=== PATIENT | female | born 1980 | race Caucasian/White ===

== ENCOUNTER → 2020-05-10 12:57 | Outpatient (CLI) | payer BC, SELFPAY ==
--- NOTE | 2020-05-10 13:04 | ECHOD_ITS ---
Reason For Study: MURMUR Procedure This was a 2D Doppler, Color Flow transthoracic echocardiogram. Exam performed in department. Left Ventricle Normal LV size. Left ventricular systolic function is normal. The estimated ejection fraction is 60 %. Normal diastology for age. No regional wall motion abnormalities noted. Right Ventricle Normal RV size. Normal systolic function. Atria Normal left atrium. Normal right atrium. Mitral Valve Normal mitral valve. Tricuspid Valve Normal tricuspid valve. Mild tricuspid valve insufficiency. Pulmonary artery systolic pressure is 24 mmHg. Aortic Valve Normal aortic valve. Trisinus/trileaflet aortic valve. Pulmonic Valve Normal pulmonic valve. Great Vessels Normal aortic root. The pulmonary artery is normal size. Normal inferior vena cava. Pericardium/Pleural No pericardial effusion. MMode/2D Measurements & Calculations LVIDd: 4.6 cm IVSd: 0.61 cm Ao root diam: 2.5 cm LVIDs: 3.2 cm LVPWd: 0.77 cm RVDd: 3.4 cm FS: 30.9 % LAV(MOD-bp): 47.6 ml LA A4 area: 13.9 cm2 LA dimension(2D): 3.8 cm LAV(MOD-bp) Indexed: 23.5 ml/m2 LAV(MOD-sp2): 61.6 ml LAV(MOD-sp4): 34.5 ml RA A4 area: 10.9 cm2 Time Measurements MV dec time: 0.20 sec Doppler Measurements & Calculations MV E max jared: 92.0 cm/sec Lat Peak E' Jared: 16.2 cm/sec Med Peak E' Jared: 9.5 cm/sec MV A max jared: 71.7 cm/sec E/E' lat: 5.7 E/E' med: 9.7 MV E/A: 1.3 Ao V2 max: 142.8 cm/sec LV V1 max: 121.0 cm/sec PA V2 max: 119.2 cm/sec Ao max P.2 mmHg LV V1 max P.9 mmHg TR max jared: 230.5 cm/sec TR max P.3 mmHg Interpretation Summary Normal LV size. Left ventricular systolic function is normal. The estimated ejection fraction is 60 %. Structurally normal valves. Ordering Physician: Cesar Greene Referring Physician: CESAR GREENE Performed By: Trisha Peters, BROCK, RVT
== END ==
PROVIDERS: PCP Family Medicine; Visit Provider Family Medicine
DX: R01.1 Cardiac murmur, unspecified (principal)
CPT/HCPCS: 93306

== ENCOUNTER → 2021-03-08 | Outpatient (CLI) | payer BC, SELFPAY ==
[2021-03-15 13:27] LABS: HPV Reflexed? NOT INDICATED
== END | disposition home or self-care (01) ==
PROVIDERS: PCP Family Medicine; Referring Provider Registered Nurse; Visit Provider Registered Nurse
DX: Z12.4 Encounter for screening for malignant neoplasm of cervix (principal)
CPT/HCPCS: 87491; 87591; 88175; G0145

== ENCOUNTER 2021-04-06 13:07 | Outpatient (CLI) | payer BC, SELFPAY ==
--- NOTE | 2021-04-06 13:13 | BI_ITS ---
MAMMOGRAPHY - BILATERAL SCREENING REASON FOR EXAM: Female, 40 years old. Routine annual screening examination. PERTINENT HISTORY: Non-contributory. TECHNIQUE: Digital bilateral breast yasmeen (3D mammographic acquisition) in the CC and MLO projections. 2-D mediolateral oblique (MLO) and craniocaudad (CC) views of both breasts were obtained. CAD: Full Field Digital Mammography with Computer Added Detection was performed. COMPARISON: None. Baseline examination. FINDINGS: Breast Composition: The breasts are heterogeneously dense, which may obscure small masses. There are no dominant masses or suspicious calcifications. No other significant abnormalities are identified. There has been no significant change since the prior study. BI/SCRN MAMM (CAD)W/YASMEEN BILAT IMPRESSION: Stable bilateral screening mammogram. Yearly follow-up mammogram recommended. (A) ASSESSMENT CATEGORY: BIRADS Category 1: Negative. A letter regarding these results will be sent to the patient by the facility within 30 days. Approximately 10% of breast cancers are not detected by mammography. A normal mammogram should not delay biopsy of a clinically suspicious abnormality. [id number] Electronically Signed: Joaquin Thompson MD at 14:01 EST , Service support ,
== END 2021-04-06 23:59 | disposition short-term general hospital (02) ==
LOC: OPBI 13:09
PROVIDERS: PCP Family Medicine; Referring Provider Registered Nurse; Visit Provider Registered Nurse
DX: Z12.31 Encounter for screening mammogram for malignant neoplasm of breast (principal)
CPT/HCPCS: 77063; 77067

== ENCOUNTER 2021-05-09 08:24 | Outpatient (CLI) | payer BC, SELFPAY ==
[2021-05-09 12:05] LABS: Basophil# 0.02 X10^3/uL; Basophil% 0.4 % (0-1); Eosinophil# 0.16 X10^3/uL; Eosinophils% 3.1 % (0-5); Hematocrit 39.7 % (37-47); Hemoglobin 13.4 g/dL (12.0-15.0); Lymphocyte % 30.8 % (19-41); Mean Corp Hgb Conc 33.8 g/dL (32-36); Mean Corpuscular Hgb 32.8 pg (27.0-32.0); Mean Corpuscular Volume 97.1 fL (81-99); Mean Platelet Vol. 9.5 fl (6.2-12.0); Monocyte# 0.37 X10^3/uL; Monocyte% 7.1 % (0-10); NRBC Flagged by Analyzer 0 % (0-5); Neutrophil # 3.02 X10^3/uL (2.7-7.7); Neutrophil % 58.2 % (47-70); Platelet Count 286 K/mm3 (150-450); RBC Distribution Width CV 13.2 % (11.6-14.6); RBC Distribution Width SD 47.3 fl (35.1-43.9); Red Blood Count 4.09 M/mm3 (4.2-5.4); White Blood Count 5.2 K/mm3 (4.4-11.0)
[2021-05-09 13:01] LABS: ALB/GLOB Ratio 1.1 RATIO (0.9-2.4); AST(SGOT) 26 U/L (15-37); Alanine Aminotransfer ALT/SGPT 57 U/L (13-56); Albumin, Serum 3.8 g/dL (3.2-5.0); Alkaline Phosphatase 78 U/L (45-117); Anion Gap 11 (5-15); BUN 15 mg/dL (7-18); BUN/Creat Ratio 19.5 RATIO (10-20); Calcium,Total 8.6 mg/dL (8.5-10.1); Chloride 104 mmol/L (98-107); Cholesterol 209 mg/dL (200); Creatinine, Serum 0.77 mg/dL (0.55-1.02); EST Glomerular Filtration Rate 88 mL/min (>60); Est Glom Filt Rate - Afr Amer 106 mL/min (>60); Globulin 3.4 g/dL (2.2-4.2); Glucose 90 mg/dL (74-106); High Density Lipoprotein 69 mg/dL; Potassium 3.6 mmol/L (3.5-5.1); Protein, Total 7.2 g/dL (6.4-8.2); Sodium Level 137 mmol/L (136-145); Triglycerides 110 mg/dL; Very Low Density Lipoprotein 22 mg/dL (5-40)
== END 2021-05-09 23:59 | disposition home or self-care (01) ==
LOC: MFPLAB 08:25
PROVIDERS: PCP Family Medicine; Visit Provider Registered Nurse
DX: Z01.419 Encounter for gynecological examination (general) (routine) without abnormal findings (principal)
CPT/HCPCS: 36415; 80053; 80061; 85025

== ENCOUNTER → 2023-01-17 | Outpatient (CLI) | payer BC, SELFPAY ==
[2023-01-17 17:41] LABS: Absolute Lymphocyte Count 1.72 X10^3/uL (0.83-4.51); Absolute Neutrophil Count 3.7 X10^3/uL (2.0-7.7); Basophil# 0.04 X10^3/uL; Basophil% 0.7 % (0-1); Eosinophil# 0.12 X10^3/uL; Hematocrit 37.1 % (37-47); Hemoglobin 11.7 g/dL (12.0-15.0); Lymphocyte # 1.72 X10^3/ul (0.83-4.51); Lymphocyte % 28.6 % (19-41); Mean Corp Hgb Conc 31.5 g/dL (32-36); Mean Corpuscular Hgb 29.5 pg (27.0-32.0); Mean Corpuscular Volume 93.7 fL (81-99); Mean Platelet Vol. 9.1 fl (6.2-12.0); Monocyte% 6.7 % (0-10); NRBC Flagged by Analyzer 0 % (0-5); Neutrophil # 3.71 X10^3/uL (2.7-7.7); Neutrophil % 61.7 % (47-70); Platelet Count 342 K/mm3 (150-450); RBC Distribution Width CV 12.5 % (11.6-14.6); RBC Distribution Width SD 43.5 fl (35.1-43.9); Red Blood Count 3.96 M/mm3 (4.2-5.4)
[2023-01-17 18:25] LABS: ALB/GLOB Ratio 1.1 RATIO (0.9-2.4); AST(SGOT) 13 U/L (15-37); Alanine Aminotransfer ALT/SGPT 28 U/L (13-56); Albumin, Serum 3.7 g/dL (3.2-5.0); Alkaline Phosphatase 65 U/L (45-117); Anion Gap 4 (5-15); BUN 13 mg/dL (7-18); BUN/Creat Ratio 17.8 RATIO (10-20); Calcium,Total 8.8 mg/dL (8.5-10.1); Chloride 105 mmol/L (98-107); Cholesterol 217 mg/dL (200); Creatinine, Serum 0.73 mg/dL (0.55-1.02); EST Glomerular Filtration Rate 93 mL/min (>60); Est Glom Filt Rate - Afr Amer 112 mL/min (>60); Globulin 3.4 g/dL (2.2-4.2); Glucose 91 mg/dL (74-106); High Density Lipoprotein 92 mg/dL; Potassium 3.7 mmol/L (3.5-5.1); Protein, Total 7.1 g/dL (6.4-8.2); Sodium Level 136 mmol/L (136-145); Triglycerides 67 mg/dL; Very Low Density Lipoprotein 13 mg/dL (5-40)
[2023-01-18 11:00] LABS: Ferritin 7 ng/mL (8-252); Iron 33 ug/dL (50-170); Iron Binding Capacity,Total 484 ug/dL (250-450); PERCENT IRON SATURATION 6.8 % (15.0-55.0); Vitamin B12 329 pg/mL (211-911)
== END | disposition home or self-care (01) ==
PROVIDERS: PCP Family Medicine; Visit Provider Family Medicine
DX: Z01.419 Encounter for gynecological examination (general) (routine) without abnormal findings (principal); D64.9 Anemia, unspecified
CPT/HCPCS: 36415; 80053; 80061; 82607; 82728; 83540; 83550; 85025

== ENCOUNTER → 2023-01-29 | Outpatient (CLI) | payer BC, SELFPAY ==
--- NOTE | 2023-01-29 14:33 | BI_ITS ---
MAMMOGRAPHY - BILATERAL SCREENING REASON FOR EXAM: Female, 42 years old. Routine annual screening examination. PERTINENT HISTORY: Non-contributory. TECHNIQUE: Digital bilateral breast yamseen (3D mammographic acquisition) in the CC and MLO projections. 2-D mediolateral oblique (MLO) and craniocaudad (CC) views of both breasts were obtained. CAD: Full Field Digital Mammography with Computer Added Detection was performed. COMPARISON: Comparison is made with prior study dated October 04, 2021. FINDINGS: Breast Composition: The breasts are heterogeneously dense, which may obscure small masses. There are no dominant masses or suspicious calcifications. No other significant abnormalities are identified. There has been no significant change since the prior study. BI/SCRN MAMM (CAD)W/YASMEEN BILAT IMPRESSION: Stable bilateral screening mammogram. Yearly follow-up mammogram recommended. (A) ASSESSMENT CATEGORY: BIRADS Category 1: Negative. A letter regarding these results will be sent to the patient by the facility within 30 days. Approximately 10% of breast cancers are not detected by mammography. A normal mammogram should not delay biopsy of a clinically suspicious abnormality. [id number] Electronically Signed: Joaquin Thompson MD at 12:41 EST ,
== END | disposition home or self-care (01) ==
LOC: OPBI 14:32
PROVIDERS: PCP Family Medicine; Referring Provider Family Medicine; Visit Provider Family Medicine
DX: Z12.31 Encounter for screening mammogram for malignant neoplasm of breast (principal)
CPT/HCPCS: 77063; 77067

== ENCOUNTER → 2023-04-19 | Outpatient (CLI) | payer BC, SELFPAY ==
[2023-04-19 17:48] LABS: Absolute Lymphocyte Count 2.12 X10^3/uL (0.83-4.51); Absolute Neutrophil Count 5.8 X10^3/uL (2.0-7.7); Basophil# 0.05 X10^3/uL; Basophil% 0.6 % (0-1); Eosinophil# 0.21 X10^3/uL; Eosinophils% 2.4 % (0-5); Hematocrit 38.2 % (37-47); Hemoglobin 12.5 g/dL (12.0-15.0); Lymphocyte # 2.12 X10^3/ul (0.83-4.51); Lymphocyte % 24.3 % (19-41); Mean Corp Hgb Conc 32.7 g/dL (32-36); Mean Corpuscular Hgb 29.2 pg (27.0-32.0); Mean Corpuscular Volume 89.3 fL (81-99); Mean Platelet Vol. 9.2 fl (6.2-12.0); Monocyte# 0.52 X10^3/uL; NRBC Flagged by Analyzer 0 % (0-5); Neutrophil # 5.77 X10^3/uL (2.7-7.7); Neutrophil % 66.2 % (47-70); Platelet Count 331 K/mm3 (150-450); RBC Distribution Width CV 13.3 % (11.6-14.6); RBC Distribution Width SD 43.5 fl (35.1-43.9); Red Blood Count 4.28 M/mm3 (4.2-5.4); White Blood Count 8.7 K/mm3 (4.4-11.0)
[2023-04-19 18:19] LABS: Vitamin B12 288 pg/mL (211-911); Vitamin D,25 Hydroxy 7.8 ng/mL
[2023-04-19 18:36] LABS: ALB/GLOB Ratio 1.1 RATIO (0.9-2.4); AST(SGOT) 15 U/L (15-37); Alanine Aminotransfer ALT/SGPT 23 U/L (13-56); Albumin, Serum 3.9 g/dL (3.2-5.0); Alkaline Phosphatase 70 U/L (45-117); Anion Gap 7 (5-15); BUN 16 mg/dL (7-18); BUN/Creat Ratio 20.9 RATIO (10-20); Calcium,Total 8.9 mg/dL (8.5-10.1); Chloride 106 mmol/L (98-107); Creatinine, Serum 0.76 mg/dL (0.55-1.02); EST Glomerular Filtration Rate 88 mL/min (>60); Est Glom Filt Rate - Afr Amer 107 mL/min (>60); Globulin 3.6 g/dL (2.2-4.2); Glucose 87 mg/dL (74-106); Potassium 3.4 mmol/L (3.5-5.1); Protein, Total 7.5 g/dL (6.4-8.2); Sodium Level 137 mmol/L (136-145); T4 Free Direct 0.94 ng/dL (0.76-1.46); Thyroid Stim Hormone (TSH) 2.35 uIU/mL (0.358-3.74)
== END | disposition home or self-care (01) ==
LOC: MFPLAB 16:10
PROVIDERS: PCP Family Medicine; Visit Provider Family Medicine
DX: R53.83 Other fatigue (principal)
CPT/HCPCS: 36415; 80053; 82306; 82607; 84439; 84443; 85025

== ENCOUNTER → 2023-07-13 | Outpatient (CLI) | payer BC, SELFPAY ==
[2023-07-13 11:28] LABS: Absolute Lymphocyte Count 1.44 X10^3/uL (0.83-4.51); Absolute Neutrophil Count 2.5 X10^3/uL (2.0-7.7); Basophil# 0.03 X10^3/uL; Basophil% 0.7 % (0-1); Eosinophil# 0.15 X10^3/uL; Eosinophils% 3.3 % (0-5); Hematocrit 37.4 % (37-47); Hemoglobin 11.8 g/dL (12.0-15.0); Lymphocyte # 1.44 X10^3/ul (0.83-4.51); Lymphocyte % 31.9 % (19-41); Mean Corp Hgb Conc 31.6 g/dL (32-36); Mean Corpuscular Hgb 28.9 pg (27.0-32.0); Mean Corpuscular Volume 91.7 fL (81-99); Mean Platelet Vol. 9.4 fl (6.2-12.0); Monocyte# 0.39 X10^3/uL; Monocyte% 8.6 % (0-10); NRBC Flagged by Analyzer 0 % (0-5); Neutrophil # 2.49 X10^3/uL (2.7-7.7); Neutrophil % 55.1 % (47-70); Platelet Count 345 K/mm3 (150-450); RBC Distribution Width SD 43.4 fl (35.1-43.9); Red Blood Count 4.08 M/mm3 (4.2-5.4); White Blood Count 4.5 K/mm3 (4.4-11.0)
[2023-07-13 11:43] LABS: Amphetamine Urine VISTA POSITIVE (<1000 ng/mL); Barbiturate Urine VISTA NEGATIVE (< 200 ng/mL); Benzodiazepine Urine VISTA NEGATIVE (< 200 ng/mL); Cocaine Urine VISTA NEGATIVE (< 300 ng/mL); Ecstacy Urine VISTA NEGATIVE (< 500 ng/mL); Methadone Urine VISTA NEGATIVE (< 300 ng/mL); PCP Urine VISTA NEGATIVE (< 25 ng/mL); THC Urine VISTA NEGATIVE (< 50 ng/mL); Vista UDS pH Range 6
[2023-07-13 11:44] LABS: Vitamin D,25 Hydroxy 59.3 ng/mL
[2023-07-13 12:00] LABS: ALB/GLOB Ratio 1.1 RATIO (0.9-2.4); AST(SGOT) 23 U/L (15-37); Alanine Aminotransfer ALT/SGPT 26 U/L (13-56); Albumin, Serum 3.8 g/dL (3.2-5.0); Alkaline Phosphatase 60 U/L (45-117); Anion Gap 4 (5-15); BUN 16 mg/dL (7-18); BUN/Creat Ratio 21.6 RATIO (10-20); Calcium,Total 8.7 mg/dL (8.5-10.1); Chloride 107 mmol/L (98-107); Creatinine, Serum 0.74 mg/dL (0.55-1.02); EST Glomerular Filtration Rate 91 mL/min (>60); Est Glom Filt Rate - Afr Amer 110 mL/min (>60); Ferritin 8 ng/mL (8-252); Globulin 3.4 g/dL (2.2-4.2); Glucose 101 mg/dL (74-106); Iron 43 ug/dL (50-170); Iron Binding Capacity,Total 513 ug/dL (250-450); Potassium 4.2 mmol/L (3.5-5.1); Protein, Total 7.2 g/dL (6.4-8.2); Sodium Level 136 mmol/L (136-145)
== END | disposition home or self-care (01) ==
LOC: MFPLAB 08:53
PROVIDERS: PCP Family Medicine; Visit Provider Family Medicine
DX: D50.9 Iron deficiency anemia, unspecified (principal); E55.9 Vitamin D deficiency, unspecified; F90.0 Attention-deficit hyperactivity disorder, predominantly inattentive type
CPT/HCPCS: 36415; 80053; 80307; 82306; 82728; 83540; 83550; 85025

== ENCOUNTER → 2023-11-13 | Outpatient (CLI) | payer BC, SELFPAY ==
[2023-11-13 17:30] LABS: Absolute Lymphocyte Count 1.67 X10^3/uL (0.83-4.51); Absolute Neutrophil Count 4.3 X10^3/uL (2.0-7.7); Basophil# 0.04 X10^3/uL; Basophil% 0.6 % (0-1); Eosinophil# 0.13 X10^3/uL; Hematocrit 37.4 % (37-47); Hemoglobin 11.7 g/dL (12.0-15.0); Lymphocyte # 1.67 X10^3/ul (0.83-4.51); Lymphocyte % 25.2 % (19-41); Mean Corp Hgb Conc 31.3 g/dL (32-36); Mean Corpuscular Hgb 28.5 pg (27.0-32.0); Mean Platelet Vol. 9.3 fl (6.2-12.0); Monocyte# 0.45 X10^3/uL; Monocyte% 6.8 % (0-10); NRBC Flagged by Analyzer 0 % (0-5); Neutrophil # 4.33 X10^3/uL (2.7-7.7); Neutrophil % 65.1 % (47-70); Platelet Count 326 K/mm3 (150-450); RBC Distribution Width CV 13.8 % (11.6-14.6); RBC Distribution Width SD 45.9 fl (35.1-43.9); Red Blood Count 4.11 M/mm3 (4.2-5.4); White Blood Count 6.6 K/mm3 (4.4-11.0)
[2023-11-13 18:20] LABS: AST(SGOT) 18 U/L (15-37); Alanine Aminotransfer ALT/SGPT 19 U/L (13-56); Albumin, Serum 3.6 g/dL (3.2-5.0); Alkaline Phosphatase 66 U/L (45-117); Anion Gap 6 (5-15); BUN 11 mg/dL (7-18); BUN/Creat Ratio 12.2 RATIO (10-20); Calcium,Total 8.8 mg/dL (8.5-10.1); Chloride 105 mmol/L (98-107); EST Glomerular Filtration Rate 73 mL/min (>60); Est Glom Filt Rate - Afr Amer 88 mL/min (>60); Ferritin 8 ng/mL (8-252); Globulin 3.6 g/dL (2.2-4.2); Glucose 95 mg/dL (74-106); Iron 71 ug/dL (50-170); Iron Binding Capacity,Total 475 ug/dL (250-450); Potassium 3.9 mmol/L (3.5-5.1); Protein, Total 7.2 g/dL (6.4-8.2); Sodium Level 136 mmol/L (136-145)
[2023-11-13 18:24] LABS: Vitamin D,25 Hydroxy 37.7 ng/mL
== END | disposition home or self-care (01) ==
LOC: MFPLAB 15:00
PROVIDERS: PCP Family Medicine; Visit Provider Family Medicine
DX: D50.9 Iron deficiency anemia, unspecified (principal); E55.9 Vitamin D deficiency, unspecified
CPT/HCPCS: 36415; 80053; 82306; 82728; 83540; 83550; 85025

== ENCOUNTER → 2024-03-05 | Outpatient (CLI) | payer BC, SELFPAY ==
[2024-03-05 17:45] LABS: Absolute Lymphocyte Count 1.42 X10^3/uL (0.83-4.51); Absolute Neutrophil Count 4.5 X10^3/uL (2.0-7.7); Basophil# 0.03 X10^3/uL; Basophil% 0.4 % (0-1); Eosinophil# 0.45 X10^3/uL; Eosinophils% 6.5 % (0-5); Hematocrit 36.9 % (37-47); Hemoglobin 11.9 g/dL (12.0-15.0); Lymphocyte # 1.42 X10^3/ul (0.83-4.51); Lymphocyte % 20.4 % (19-41); Mean Corp Hgb Conc 32.2 g/dL (32-36); Mean Corpuscular Hgb 29.1 pg (27.0-32.0); Mean Corpuscular Volume 90.2 fL (81-99); Mean Platelet Vol. 8.9 fl (6.2-12.0); Monocyte# 0.54 X10^3/uL; Monocyte% 7.8 % (0-10); NRBC Flagged by Analyzer 0 % (0-5); Neutrophil # 4.49 X10^3/uL (2.7-7.7); Neutrophil % 64.6 % (47-70); Platelet Count 364 K/mm3 (150-450); RBC Distribution Width CV 13.1 % (11.6-14.6); RET-HE 32.3 pg (30-35); Red Blood Count 4.09 M/mm3 (4.2-5.4); Reticulocyte Count 2.23 % (0.5-1.5)
[2024-03-05 18:09] LABS: Vitamin B12 407 pg/mL (211-911)
[2024-03-05 18:20] LABS: Ferritin 14 ng/mL (8-252); Iron 34 ug/dL (50-170); Iron Binding Capacity,Total 370 ug/dL (250-450); PERCENT IRON SATURATION 9.2 % (15.0-55.0)
== END | disposition home or self-care (01) ==
LOC: MTLAB 15:23
PROVIDERS: PCP Family Medicine; Referring Provider Family Medicine; Visit Provider Family Medicine
DX: D50.9 Iron deficiency anemia, unspecified (principal)
CPT/HCPCS: 36415; 82607; 82728; 82746; 83540; 83550; 85025; 85045

== ENCOUNTER → 2024-05-15 | Outpatient (CLI) | payer BC, SELFPAY ==
--- NOTE | 2024-05-15 15:27 | BI_ITS ---
PROCEDURE: SCRN MAMM (CAD)W/YASMEEN BILAT REASON FOR EXAM: F, Age 43 y/o, no family history. Routine annual mammogram TECHNIQUE:
== END | disposition home or self-care (01) ==
LOC: OPBI 15:26
PROVIDERS: PCP Family Medicine; Referring Provider Family Medicine; Visit Provider Family Medicine
DX: Z12.31 Encounter for screening mammogram for malignant neoplasm of breast (principal)
CPT/HCPCS: 77063; 77067

== ENCOUNTER → 2024-07-03 | Outpatient (CLI) | payer BC, SELFPAY ==
[2024-07-03 17:46] LABS: Absolute Lymphocyte Count 1.73 X10^3/uL (0.83-4.51); Absolute Neutrophil Count 3.9 X10^3/uL (2.0-7.7); Basophil# 0.05 X10^3/uL; Basophil% 0.8 % (0-1); Eosinophil# 0.18 X10^3/uL; Eosinophils% 2.9 % (0-5); Hematocrit 37.1 % (37-47); Lymphocyte # 1.73 X10^3/ul (0.83-4.51); Lymphocyte % 27.7 % (19-41); Mean Corp Hgb Conc 32.3 g/dL (32-36); Mean Corpuscular Hgb 29.6 pg (27.0-32.0); Mean Corpuscular Volume 91.6 fL (81-99); Mean Platelet Vol. 9.1 fl (6.2-12.0); Monocyte% 6.4 % (0-10); NRBC Flagged by Analyzer 0 % (0-5); Neutrophil # 3.87 X10^3/uL (2.7-7.7); Neutrophil % 61.9 % (47-70); Platelet Count 363 K/mm3 (150-450); RBC Distribution Width CV 13.4 % (11.6-14.6); RBC Distribution Width SD 45.7 fl (35.1-43.9); Red Blood Count 4.05 M/mm3 (4.2-5.4); White Blood Count 6.3 K/mm3 (4.4-11.0)
[2024-07-03 18:11] LABS: Ferritin 24 ng/mL (22-378); Iron 47 ug/dL (50-170); Iron Binding Capacity,Total 373 ug/dL (250-450); Iron Binding Capacity,Unsat 326 ug/dL (228-428)
== END | disposition home or self-care (01) ==
LOC: MFPLAB 14:58
PROVIDERS: PCP Family Medicine; Referring Provider Family Medicine; Visit Provider Family Medicine
DX: D50.9 Iron deficiency anemia, unspecified (principal)
CPT/HCPCS: 36415; 82728; 83540; 83550; 85025

== ENCOUNTER → 2024-11-12 | Outpatient (CLI) | payer BC, SELFPAY ==
[2024-11-12 18:00] LABS: Hematocrit 33.9 % (37-47); Hemoglobin 11.1 g/dL (12.0-15.0); Immature Granulocytes Count 0.020 X10^3/uL (0.0-0.0); Mean Corp Hgb Conc 32.7 g/dL (32-36); Mean Corpuscular Volume 90.2 fL (81-99); Mean Platelet Vol. 9.1 fl (6.2-12.0); NRBC Flagged by Analyzer 0 % (0-5); Platelet Count 342 K/mm3 (150-450); RBC Distribution Width CV 13.5 % (11.6-14.6); RBC Distribution Width SD 44.3 fl (35.1-43.9); Red Blood Count 3.76 M/mm3 (4.2-5.4); White Blood Count 6.0 K/mm3 (4.4-11.0)
[2024-11-12 18:33] LABS: AST(SGOT) 20 U/L (<=31); Alanine Aminotransfer ALT/SGPT 19 U/L (<=34); Albumin, Serum 4.3 g/dL (3.5-5.0); Alkaline Phosphatase 61 U/L (35-104); Anion Gap 13 (5-15); BUN 15 mg/dL (4-19); BUN/Creat Ratio 20.7 RATIO (10-20); Calcium,Total 9.0 mg/dL (7.6-11.0); Carbon Dioxide 22.7 mmol/L (21.0-32.0); Chloride 101 mmol/L (98-108); Globulin 2.4 g/dL (2.2-4.2); Glucose 89 mg/dL (70-99); Iron 42 ug/dL (50-170); Iron Binding Capacity,Total 389 ug/dL (250-450); Iron Binding Capacity,Unsat 347 ug/dL (228-428); Potassium 4.0 mmol/L (3.3-5.1)
[2024-11-12 19:10] LABS: Ferritin 16 ng/mL (22-378); Vitamin D,25 Hydroxy 35.7 ng/mL (30-100)
== END | disposition home or self-care (01) ==
LOC: MFPLAB 15:11
PROVIDERS: PCP Family Medicine; Referring Provider Family Medicine; Visit Provider Family Medicine
DX: E55.9 Vitamin D deficiency, unspecified (principal); D50.9 Iron deficiency anemia, unspecified
CPT/HCPCS: 36415; 80053; 82306; 82728; 83540; 83550; 85025

== ENCOUNTER 2025-02-12 10:36 | Day surgery (SDC) | payer BC, SELFPAY ==
--- NOTE | 2025-01-28 16:10 | HP.PCM_ITS ---
History and Physical Date of Admission: 02/12/25 HPI: The patient is a 44 year old female presenting for pre-operative visit. She is scheduled for Hysteroscopy D&C and polyp resection and IUD insertion, for menorrhagia, dysmenorrhea, endometrial polyp and adenomyosis on 02/12/2025. Procedure discussed along with risks, benefits and compl ications. Other alternatives discussed for management. Consent form signed? Yes. ? ? PAST MEDICAL HISTORY PAST MEDICAL HISTORYDiagnosisDate?Ovarian [id number] ? ? PAST SURGICAL HISTORY PAST SURGICAL HISTORYProcedureLateralityDate?ABDOMINOPLASTY?2012?TONSILLECTOMY HX? CURRENT MEDICATIONS Current Outpatient MedicationsMedicationSigDispenseRefill?VYVANSE 50 mg capsuleTake 50 mg by mouth once daily.???tranexamic acid (LYSTEDA) 650 mg tabletTake 2 tablets by mouth three times a day. for 5 days when your period ?No current facility-administered medications for this visit. ? ? ALLERGIES: Clindamycin and Penicillins ? PERSONAL HISTORY: [SOCIAL HISTORY] [SOCIAL HISTORY] Social History Tobacco Use ? Smoking status: Former ? ? Types: Cigarettes ? Smokeless tobacco: Never Vaping Use ? Vaping status: Never Used Substance Use Topics ? Alcohol use: Yes ? ? Alcohol/week: 6.0 - 12.0 standard drinks of alcohol ? ? Types: 6 - 12 Standard drin ks or equivalent per week ? Drug use: Never ? FAMILY HISTORY: FAMILY HISTORY FAMILY HISTORY ProblemRelationAge of Onset ?StrokeMother??DiabetesMother??HypertensionMother? ? ? REVIEW OF SYMPTOMS: GENERAL: denies fevers or chills ENDOCRINOLOGY: has not been on steroids Cardiology : denies palpitations or chest pain Respiratory: denies SOB or cough Hematology: denies history of prolonged bleeding or easy bruising or VTE Allergy: Denies history of personal or family history of allergy to anesthesia ? PHYSICAL EXAMINATION: ? VITALS: Blood pressure 130/82, weight 80.7 kg (178 lb), last menstrual period 12/29/2024. ? GENERAL: The patient is well nourished, well hydrated in no acute distress. , The patient is oriented to time, place, and person. NECK: Supple. No lynphadenopathy, normal thyroid, no thyromegaly. LUNGS: Clear to auscultation bilaterally. no wheezes, rhonchi or rales HEART: Regular rate and rhythm, Normal heart sounds, and No murmurs or gallops ? IMPRESSION: menorrhagia with regular cycle, endometrial polyp, dysmenorrhea, adenomyosis ? PLAN: The risks/benefits/alternatives and personal involved for the planned hysteroscopy D&C with polyp resection and IUD insertion were reviewed with the patient. Her questions were answered to her satisfaction and she desires to proceed. Consent was signed. I reviewed with her postop instructions and expectations. ? ? I have reviewed and updated past medical and surgical history, medications and allergies Assessment & Plan Assessment/Plan (1) Menorrhagia with regular cycle: (2) Dysmenorrhea: (3) Endometrial polyp: (4) Adenomyosis:
--- NOTE | 2025-02-10 17:05 | PAT.ANE_ITS ---
Pre-Assessment Diagnosis/Proposed Procedure Planned Operative Procedure(s): HYSTEROSCOPY, D&C SYMPHION, IUD INSERTION Anesthesia History Anesthesia History - mold filling operator: Anesthesia History - mold filling operator Hx Hospitalization No 02/10/25 09:06 Any Problems With Anesthesia No 02/10/25 09:06 Cholinesterase deficiency No 02/10/25 09:06 You/Your Family Experience No 02/10/25 09:06 fever (hyperthermia) with Relationship Recent Exposure to Contagious Disease Does patient have nerve No 02/10/25 09:06 stimulator Patient instructed to have device shut off --Does patient have Pacemaker or ICD? When Was Last Pacemaker Check QUESTION #4 FULL TEXT: You/Your Family Experience fever (hyperthermia) with Anesthesia Last Oral Intake Last Oral intake: Last Oral Intake NPO since Meds taken in AM with sips of water? Meds patient instructed to take am of surgery PONV PONV - mold filling operator: PONV - mold filling operator Female Yes 02/10/25 09:06 HX of Motion Sickness No 02/10/25 09:06 HX of N/V After Surgery No 02/10/25 09:06 Non-Smoker Yes 02/10/25 09:06 Duration of Surgery greater No 02/10/25 09:06 than 60 minutes Number of Risk Factors 2 02/10/25 09:06 PONV Score Moderate Risk 02/10/25 09:06 Respiratory Assessment Respiratory Assessment - mold filling operator: Respiratory Tract Infection Hx - mold filling operator Hx Respiratory Tract Infection No 02/10/25 09:06 STOP Sleep Apnea STOP Sleep Apnea - mold filling operator: STOP Sleep Apnea - mold filling operator Hx Hypertension No 02/10/25 09:06 Hx Sleep Apnea No 02/10/25 09:06 CPAP BIPAP Do you snore loudly (louder No 02/10/25 09:06 than talking or can be heard Do you often feel tired/ No 02/10/25 09:06 fatigued/ sleepy during daytime? Has anyone observed you stop No 02/10/25 09:06 breathing during sleep? STOP Results Negative 02/10/25 09:06 QUESTION #5 FULL TEXT : Do you snore loudly (louder than talking or can be heard through closed doors)? Tobacco Use History Tobacco Use History - mold filling operator: Tobacco Use History - mold filling operator Tobacco Use Smoking Status Former smoker 02/10/25 09:06 Hx Tobacco Use No 02/10/25 09:06 Years Smoking Packs Smoked per Day Smoking Cessation Date was Yes - quit smoking within 15 02/10/25 09:06 within the last 15 years years Hx Smoking Cessation Date Hx Smoking Cessation Counseling Hematologic Medial History Hematologic Hx - mold filling operator: Hematologic Medical Hx - business process analyst Hx of Blood Transfusion No 02/10/25 09:06 Hx of Transfusion in last 3 No 02/10/25 09:06 Months Date of Last Transfusion (if within last 3 months) Ever experience any problems No 02/10/25 09:06 with transfusion(s)? Specify any problems Hx of Preganancy in last 3 No 02/10/25 09:06 Months Nurse Filling Out Transfusion [email or web address] 02/10/25 09:06 & Questions: Date: 02/10/25 02/10/25 09:06 Time: 09:09 02/10/25 09:06 Patient unable to answer at this time (ie. confused, unrespo /Reproduction History /Reproductive History - mold filling operator: /Reproductive Hx- mold filling operator Hx Now No 02/10/25 09:06 Gestational Age (in weeks): EDC: Hx Hx Para Hx Section SAB No 02/10/25 09:06 Does the father of the baby or his family experience fever w Father of the baby Malignant Hypertension history comment PFSH Medical History (Updated 02/10/25 @ 09:13 by Gm Kapoor) Alcohol use Low iron Anemia Former smoker History of echocardiogram Heart murmur Home Medications ?Medication ?Instructions ?Recorded ?Last Taken ?Type lisdexamfetamine 50 mg capsule 50 mg PO DAILY 02/10/25 Unknown History multivitamin (Daily Multi-Vitamin 1 tab PO DAILY 02/10 Unknown History tablet) Allergy/AdvReac Type Severity Reaction Status Date / Time clindamycin AdvReac Rash Verified 02/10/25 09:05 Penicillins (PCN) AdvReac PT UNSURE Verified 02/10/25 09:05 OF REACTION Surgical History (Updated 02/10/25 @ 09:13 by Gm Kapoor) H/O abdominoplasty Hx of tonsillectomy Social History Smoking Status: Former smoker Audit: Pertinent Findings Pertinent Findings Echo (EF%) pertinent findings: Echo 05/10/2020. Normal LV size. Left ventricular systolic function is normal. EF is 60%. Structurally normal valves. Recommendation Anesthesia Recommendation Anesthesia recommendation: OPTIMIZED for anesthesia
[2025-02-10 17:13] LABS: Hematocrit 37.6 % (37-47); Hemoglobin 12.8 g/dL (12.0-15.0); Mean Corp Hgb Conc 34.0 g/dL (32-36); Mean Corpuscular Volume 89.1 fL (81-99); Mean Platelet Vol. 9.1 fl (6.2-12.0); Platelet Count 327 K/mm3 (150-450); RBC Distribution Width CV 13.7 % (11.6-14.6); RBC Distribution Width SD 44.8 fl (35.1-43.9); Red Blood Count 4.22 M/mm3 (4.2-5.4); White Blood Count 6.9 K/mm3 (4.4-11.0)
--- NOTE | 2025-02-12 10:43 | PCM.PRE.AN2 ---
ASA Classification* ASA Classification ASA Classification: 2 Assessment & Plan Anesthesia* Anesthesia Assessment Anesthesia Assessment: Discussed sedation and/or anesthesia options, risks, benefits, and alternatives with patient/parents/legal guardian/POA. Questions invited. The patient/parents/legal guardian/POA seems to understand and agrees to proceed with anesthesia plan. Reviewed the physical assessment, medical history, allergy history and patient home medications list prior to surgery/procedure/anesthetic and documented any changes. Performed airway and anesthesia risk assessments. Anesthesia Type Anesthesia Type: MAC Anesthesia Focused Assessment* Airway Assessment Mouth opens: >3 cm Mallampati Score: II Labs Anesthesia Preop lab: CBC WBC, (4.4-11.0) 6.9 K/mm3 02/10/25, 16:08 RBC, (4.2-5.4) 4.22 M/mm3 02/10/25, 16:08 Hgb, (12.0-15.0) 12.8 g/dL 02/10/25, 16:08 Hct, (37-47) 37.6 % 02/10/25, 16:08 Plt Count, (150-450) 327 K/mm3 02/10/25, 16:08 CHEMISTRY Potassium, (3.3-5.1) 4.0 mmol/L 11/12/24, 15:11 Sodium, (133-145) 136 mmol/L 11/12/24, 15:11 BUN, (4-19) 15 mg/dL 11/12/24, 15:11 Creatinine, (0.70-1.20) 0.72 mg/dL 11/12/24, 15:11 Glucose, (70-99) 89 mg/dL 11/12/24, 15:11 TSH, (0.358-3.74) 2.35 uIU/mL 04/19/23, 16:13 COAG Pre-Assessment Diagnosis/Proposed Procedure Planned Operative Procedure(s): HYSTEROSCOPY, D&C SYMPHION, IUD INSERTION Anesthesia History Anesthesia History - speech and language assistant: Anesthesia History - speech and language assistant Hx Hospitalization No 02/10/25 09:06 Any Problems With Anesthesia No 02/10/25 09:06 Cholinesterase deficiency No 02/10/25 09:06 You/Your Family Experience No 02/10/25 09:06 fever (hyperthermia) with Relationship Recent Exposure to Contagious Disease Does patient have nerve No 02/10/25 09:06 stimulator Patient instructed to have device shut off --Does patient have Pacemaker or ICD? When Was Last Pacemaker Check QUESTION #4 FULL TEXT: You/Your Family Experience fever (hyperthermia) with Anesthesia Last Oral Intake Last Oral intake: Last Oral Intake NPO since Meds taken in AM with sips of water? Meds patient instructed to take am of surgery PONV PONV - speech and language assistant: PONV - speech and language assistant Female Yes 02/10/25 09:06 HX of Motion Sickness No 02/10/25 09:06 HX of N/V After Surgery No 02/10/25 09:06 Non-Smoker Yes 02/10/25 09:06 Duration of Surgery greater No 02/10/25 09:06 than 60 minutes Number of Risk Factors 2 02/10/25 09:06 PONV Score Moderate Risk 02/10/25 09:06 Respiratory Assessment Respiratory Assessment - speech and language assistant: Respiratory Tract Infection Hx - speech and language assistant Hx Respiratory Tract Infection No 02/10/25 09:06 STOP Sleep Apnea STOP Sleep Apnea - speech and language assistant: STOP Sleep Apnea - speech and language assistant Hx Hypertension No 02/10/25 09:06 Hx Sleep Apnea No 02/10/25 09:06 CPAP BIPAP Do you snore loudly (louder No 02/10/25 09:06 than talking or can be heard Do you often feel tired/ No 02/10/25 09:06 fatigued/ sleepy during daytime? Has anyone observed you stop No 02/10/25 09:06 breathing during sleep? STOP Results Negative 02/10/25 09:06 QUESTION #5 FULL TEXT : Do you snore loudly (louder than talking or can be heard through closed doors)? 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 Specify any problems Hx of Preganancy in last 3 No 02/10/25 09:06 Months Nurse Filling Out Transfusion [email or web address] 02/10/25 09:06 & Questions: Date: 02/10/25 02/10/25 09:06 Time: 09:09 02/10/25 09:06 Patient unable to answer at this time (ie. confused, unrespo /Reproduction History /Reproductive History - speech and language assistant: /Reproductive Hx- speech and language assistant Hx Now No 02/10/25 09:06 Gestational Age (in weeks): EDC: Hx Hx Para Hx Section SAB No 02/10/25 09:06 Does the father of the baby or his family experience fever w Father of the baby Malignant Hypertension history comment Active Medications Active Medications: Current Medications Generic Name Dose Route Start Last Admin Trade Name Freq PRN Reason Stop Dose Admin Acetaminophen 1,000 mg 02/12/25 12:30 Acetaminophen 500 Mg Tablet PO 02/12/25 12:31 PREOP ONE Ketorolac Tromethamine 30 mg 02/12/25 12:30 Ketorolac 30 Mg/Ml Syringe IV 02/12/25 12:31 PREOP ONE Levonorgestrel 1 each 02/12/25 12:30 Levonorgestrel Iud (Liletta) INTRA-UTER 02/12/25 12:31 X1 ONE [facility] Medical History Alcohol use Low iron Anemia Former smoker History of echocardiogram Heart murmur Home Medications ?Medication ?Instructions ?Recorded ?Last Taken ?Type lisdexamfetamine 50 mg capsule 50 mg PO DAILY 02/10/25 Unknown History multivitamin (Daily Multi-Vitamin 1 tab PO DAILY 02/10/25 Unknown History tablet) Allergy/AdvReac Type Severity Reaction Status Date / Time clindamycin AdvReac Rash Verified 02/10/25 09:05 Penicillins (PCN) AdvReac PT UNSURE Verified 02/10/25 09:05 OF REACTION Surgical History H/O abdominoplasty Hx of tonsillectomy Social History Smoking Status: Former smoker Review of Systems (Anesthesia) ROS Narrative System reviewed and no additional complaints, except as documented.
[2025-02-12 11:13] VITALS: BP 115/61; PULSE 68; RESP 12; TEMP 37.1; O2SAT 99; BMI 28.3
[2025-02-12 11:13] LABS: Internal QC Validated? YES +Cl - CLEAR BKGD; Pregnancy, Urine Negative Negative
[2025-02-12 11:14] LABS: Record Kit Lot#,Urine Preg 980607
[2025-02-12] MEDS: Ketorolac 30 MG/ML Syringe IV (11:25)
[2025-02-12] MEDS: Lactated Ringers 1,000 ML 15 ML IV (11:25)
[2025-02-12] MEDS: Lidocaine 1% /Epi 1:100 (50ml) 50 ML VIAL (11:58)
[2025-02-12] MEDS: Midazolam 2 MG/2 ML Syringe IV (12:08)
[2025-02-12] MEDS: Lidocaine 1% (5 ml sdv) 5 ML Vial IV (12:09)
--- NOTE | 2025-02-12 12:15 | EMB_PTH ---
PATIENT: DANTE RHODES [place] [facility] [place][id number] AGE/SX: 44/F ROOM: RE02/12/[address]: Dr. Stacie Drummond MD : 1980 BED: DIS: 02/12/2025 SPEC #: [id number] RECD: 02/12/25 13:54 STATUS: COLT REQ #: [id number] KAVON: 02/12/25 12:[address]: Stacie Drummond DEPT: SURGICAL PATHOLOGY RECD BY: Reza Sandra ENTERED: 02/12/25 15:30 SP TYPE: ENDOM BX/C OT DR: Dr. Darius Greene MD Tissues: A - Endometrium, NOS Procedures: Surgery Specimen Level IV HEADER OPERATION: Hysteroscopy, D&C PRE-OP DIAGNOSIS: Menorrhagia, dysmenorrhea, polyp TISSUE SUBMITTED: A- Endometrial curettings, polyp MICROSCOPIC DIAGNOSIS A. Endometrium, curettage: * Benign ovulatory endometrium MICROSCOPIC DESCRIPTION Slides are reviewed. GROSS DESCRIPTION A. Received in formalin labeled with the patient's name and date of . Designated as endometrial curettings and polyp is a 4.9 x 4.3 x 0.6 cm aggregate of brush-pink to red, irregular tissue fragments. Entirely submitted in 5 cassettes. [place] [id number]
[2025-02-12] MEDS: Levonorgestrel IUD (Liletta) 1 EACH INTRA-UTER (12:35)
--- NOTE | 2025-02-12 12:43 | OP.PCM_ITS ---
Operative Report (Standard) Operative Information Date of Procedure: 02/12/25 Pre-Operative Diagnosis: endometrial polyp, menorrhagia Post-Operative Diagnosis: same Surgery/Procedure Performed: Hysteroscopy D&C with Liletta IUD insertion coating machine operator helper: No Type of Anesthesia: MAC/Supplemental/Local RN Documented Start/Stop Times: Operation Date: 02/12/25 12:15 Case Time Into Pre-Op 02/12/25 10:45 Anesthesia Start 02/12/25 12:05 Into Room 02/12/25 12:05 Procedure Start 02/12/25 12:24 Procedure End 02/12/25 12:38 Anesthesia End 02/12/25 12:43 Out of Room 02/12/25 12:43 Into Recovery 02/12/25 12:45 Into Phase II Recovery 02/12/25 12:56 Out of Recovery 02/12/25 12:56 Procedure Start Time: 12:24 Procedure Stop Time: 12:38 Select all DRAINS/GRAFTS/IMPLANTS that apply: None Estimated Blood Loss: 10 Fluids Replaced: 800 cc LR Specimen collected: Yes Description of specimen(s) removed: endometrial curettings and polyp Description of surgery: The patient was taken to the OR where she was prepped and draped in dorsal lithotomy position. The weighted speculum was placed in the vagina and the ante rior lip of the cervix was grasped with a single-tooth tenaculum. A paracervical block was administered with [1% lidocaine with 1-100,000 epinephrine solution]. The cervix was dilated serially with Hegar dilators. The Symphion hysteroscope was placed into the uterine cavity and the above findings were noted. Bilateral tubal ostia [were] identified. The Symphion was readied and inserted. The polypoid appearing lesion on the anterior fundus was removed in its entirety and then a visual D&C was done of the entire endometrium. The endometrium was thickened and ragged. There were no other focal abnormalities of the cavity and the endocervix appeared normal. The instruments were removed from the vagina. The specimen was handed off and sent to pathology. All sponge and needle counts were correct. Vaginal sweep was performed by me. The patient was awakened and taken to the recovery room in stable condition. Hysteroscopic fluid deficit calculated to be 450 cc of normal saline Surgical Findings: lush endometrium, ragged, polypoid area anterior uterine wall Complications Complications: No Admit VTE Documentation VTE Present on Admission: No VTE Mechan Device Prophylaxis: SCD's
[2025-02-12 12:45] VITALS: BP 115/61; BP 120/69; PULSE 67; RESP 18; TEMP 36.4; O2SAT 100
--- NOTE | 2025-02-12 12:47 | PCM.POST.ANE ---
Anesthesia: Postop Eval I Current Vital Signs Temperature: 97.5 F Pulse Rate: 68 Blood Pressure: 120/69 Respiratory Rate: 18 Pulse Ox: 100 Oxygen Delivery Method: Room Air Assessment Airway patent: Yes Spontaneous unlabored respirations: Yes Mental status: Awake and Calm nausea: No Vomiting: No Anesthesia Complication: No Fluid Hydration Crystalloid volume administer (ml): 600 Total IV fluid infused: 600 Progress Note Anesthesia document: Postop Eval 1 completed: Yes
[2025-02-12 12:48] VITALS: BP 120/69; PULSE 68; RESP 18; TEMP 36.4; O2SAT 100
[2025-02-12 12:50] VITALS: BP 115/61; BP 115/70; PULSE 63; RESP 18; O2SAT 100
[2025-02-12 12:55] VITALS: BP 114/74; BP 115/61; PULSE 60; RESP 16; TEMP 36.4; O2SAT 100
--- NOTE | 2025-02-12 12:57 | POSTOPAN2_ITS ---
Anesthesia Postop Eval I Sum Postop Eval Completion status Anesthesia document: Postop Eval 1 completed: Yes Anesthesia Postop Eval I Summary Anesthesia Postop Eval I Summary: Anesthesia Postop Eval I: Assessment Summary Airway patent Yes 02/12/25 12:48 POOL COORDINATOR.[email or web address] Spontaneous unlabored Yes 02/12/25 12:48 POOL COORDINATOR.[email or web address] respirations Mental status Awake,Calm 02/12/25 12:48 POOL COORDINATOR.[email or web address] nausea No 02/12/25 12:48 POOL COORDINATOR.[email or web address] Vomiting No 02/12/25 12:48 POOL COORDINATOR.[email or web address] Anesthesia Postop Eval I: Fluid Summary Crystalloid volume administer 600 02/12/25 12:48 POOL COORDINATOR.[email or web address] (ml) Colloids volume administered ( ml) Blood Product volume administered (ml) Total IV fluid infused 600 02/12/25 12:48 POOL COORDINATOR.[email or web address] Anesthesia Postop Eval I: Summary Notes Anesthesia Complication No 02/12/25 12:48 POOL COORDINATOR.[email or web address] Anesthesia Complication Comment: Post-operative progress note Anesthesia: Postop Eval II Evaluation Mental status: Awake Pain Level: 0 nausea: No Vomiting: No
--- NOTE | 2025-02-12 12:57 | PCM.POSTANE2 ---
Anesthesia Postop Eval I Sum Postop Eval Completion status Anesthesia document: Postop Eval 1 completed: Yes Anesthesia Postop Eval I Summary Anesthesia Postop Eval I Summary: Anesthesia Postop Eval I: Assessment Summary Airway patent Yes 02/12/25 12:48 BULLET CASTING OPERATOR.[email or web address] Spontaneous unlabored Yes 02/12/25 12:48 BULLET CASTING OPERATOR.[email or web address] respirations Mental status Awake,Calm 02/12/25 12:48 BULLET CASTING OPERATOR.[email or web address] nausea No 02/12/25 12:48 BULLET CASTING OPERATOR.[email or web address] Vomiting No 02/12/25 12:48 BULLET CASTING OPERATOR.[email or web address] Anesthesia Postop Eval I: Fluid Summary Crystalloid volume administer 600 02/12/25 12:48 BULLET CASTING OPERATOR.[email or web address] (ml) Colloids volume administered ( ml) Blood Product volume administered (ml) Total IV fluid infused 600 02/12/25 12:48 BULLET CASTING OPERATOR.[email or web address] Anesthesia Postop Eval I: Summary Notes Anesthesia Complication No 02/12/25 12:48 BULLET CASTING OPERATOR.[email or web address] Anesthesia Complication Comment: Post-operative progress note Anesthesia: Postop Eval II Evaluation Mental status: Awake Pain Level: 0 nausea: No Vomiting: No
--- NOTE | 2025-02-12 13:25 | DCINST_ITS ---
Discharge Instructions DC O2, CPAP, BIPAP needs Home O2 Discharge instructions: No Dressing / Incision Discharge Activity: No Restrictions Return to work on:: 02/13/25 May shower in (days): 1 May resume sexual activity in: 1 week Lifting Restrictions: none Dressing / Incision Call your doctor if your incision/area has: Sudden Increased Bleeding and Foul Smelling Discharge Call your doctor if you observe: Fever of 101 or Higher and Using more than 1 pad per hour (for 2 hrs in a row) Follow Up Care Please Follow Up With: Stacie Drummond MD When: You do not need a postop appointment Call [phone] or send a [employer] message to make an appointment or with any concerns. I will contact you with pathology Test Results: Test results from this visit will be discussed in further detail at your follow- up appointment, if applicable. Discharge Plan Admission Primary Reason for Your Visit: Hysteroscopy D&C with IUD insertion Attending Provider: Stacie Drummond Primary Care Provider: Darius Greene Instructions Print Language: [place] Discharge Orders/Prescriptions Prescriptions: No Action lisdexamfetamine 50 mg capsule 50 mg PO DAILY multivitamin [Daily Multi-Vitamin] Tablet 1 tab PO DAILY Referrals / Follow Up: Darius Greene MD [Primary Care Provider, Family Practice] Disposition Disposition (needs filled in before D/C Order can be placed): Home, Self Care
[2025-02-12 13:35] VITALS: BP 115/61
== END 2025-02-12 14:16 | disposition home or self-care (01) ==
LOC: SDC 10:37 → AC 10:39
PROVIDERS: PCP Family Medicine; Referring Provider Obstetrics & Gynecology; Visit Provider Obstetrics & Gynecology
PROC: 0UB98ZZ Excision of Uterus, Via Natural or Artificial Opening Endoscopic (ICD-10-PCS; CPT 58558; principal; 2025-02-12 12:00)
DX: R93.89 Abnormal findings on diagnostic imaging of other specified body structures (principal); N92.0 Excessive and frequent menstruation with regular cycle; N80.03 Adenomyosis of the uterus; N84.0 Polyp of corpus uteri; N94.6 Dysmenorrhea, unspecified; Z87.891 Personal history of nicotine dependence; Z30.430 Encounter for insertion of intrauterine contraceptive device
CPT/HCPCS: 58558; 58300; 00952; 36415; 81025; 85027; 88305; J2405

== ENCOUNTER → 2025-03-03 | Outpatient (CLI) | payer BC, SELFPAY ==
[2025-03-03 15:11] LABS: Hematocrit 38.4 % (37-47); Hemoglobin 13.3 g/dL (12.0-15.0); Immature Granulocytes Count 0.020 X10^3/uL (0.0-0.0); Mean Corp Hgb Conc 34.6 g/dL (32-36); Mean Corpuscular Volume 89.3 fL (81-99); Mean Platelet Vol. 9.1 fl (6.2-12.0); NRBC Flagged by Analyzer 0 % (0-5); Platelet Count 340 K/mm3 (150-450); RBC Distribution Width CV 13.2 % (11.6-14.6); RBC Distribution Width SD 43.7 fl (35.1-43.9); Red Blood Count 4.30 M/mm3 (4.2-5.4); White Blood Count 6.7 K/mm3 (4.4-11.0)
[2025-03-03 15:56] LABS: Ferritin 20 ng/mL (22-378); Iron 146 ug/dL (50-170); Iron Binding Capacity,Total 414 ug/dL (250-450); Iron Binding Capacity,Unsat 268 ug/dL (228-428)
== END | disposition home or self-care (01) ==
LOC: MTLAB 13:32
PROVIDERS: PCP Family Medicine; Referring Provider Family Medicine; Visit Provider Family Medicine
DX: D50.9 Iron deficiency anemia, unspecified (principal)
CPT/HCPCS: 36415; 82728; 83540; 83550; 85025